=== PATIENT | female | born 2000 ===

== ENCOUNTER 2020-03-15 12:12 | Emergency (ER) | payer SELFPAY ==
[2020-03-15] MEDS ORDERED: dexAMETHasone 20 MG/5 ML VIAL ONE (12:41)
--- NOTE | 2020-03-15 12:49 | Event Note ---
ED Screening Note Date of service: 03/15/20 Time: 12:48 ED Screening Note: 19-year-old -[place] female presents to the emergency room for 4-day history of sore throat difficulty swallowing muffled voice increased secretions. Denies any fever. This initial assessment/diagnostic orders/clinical plan/treatment(s) is/are subject to change based on patients health status, clinical progression and re- assessment by fellow clinical providers in the ED. Further treatment and workup at subsequent clinical providers discretion. Patient/guardian urged not to elope from the ED as their condition may be serious if not clinically assessed and managed. Initial orders include:
[2020-03-15] MEDS ORDERED: dexAMETHasone 20 MG/5 ML VIAL IV ONE (12:55)
[2020-03-15] MEDS ORDERED: KETOROLAC 30 MG/1 ML INJ IV ONE (12:55)
[2020-03-15] MEDS ORDERED: dexAMETHasone 4 MG/ML VIAL IV ONE (12:55)
--- NOTE | 2020-03-15 12:58 | Emergency Department Report ---
ED General Adult HPI - General Chief complaint: Sore Throat Stated complaint: SORE THROAT Time Seen by Provider: 03/15/20 12:51 Source: patient Mode of arrival: Ambulatory Limitations: No Limitations - History of Present Illness Initial comments: Patient is a 19-year-old female with no past medical history who presents to the emergency department for evaluation of worsening sore throat for the past 4 days. Patient denies fever, denies cough, complains of painful swallowing but remains able to swallow food and drink. Patient denies abdominal pain, denies nausea vomiting diarrhea, denies neck pain or stiffness. - Related Data Previous Rx's Medication Instructions Recorded Last Taken Type Amoxicillin/Potassium Clav 1 each PO Q12HR #20 tablet 03/15/20 Unknown Rx [Augmentin 875-125 Tablet] dexAMETHasone [Dexamethasone] 10 mg PO ONCE 1 Days #5 tablet 03/15/20 Unknown Rx Allergies Allergy/AdvReac Type Severity Reaction Status Date / Time No Known Allergies Allergy Unverified 03/15/20 12:32 ED Review of Systems ROS: Stated complaint: SORE THROAT Other details as noted in HPI Comment: All other systems reviewed and negative ED Past Medical Hx - Past Medical History Previous Medical History?: Yes Hx Asthma: Yes - Medications Home Medications: Home Medications Medication Instructions Recorded Confirmed Last Taken Type Amoxicillin/Potassium Clav 1 each PO Q12HR #20 tablet 03/15/20 Unknown Rx [Augmentin 875-125 Tablet] dexAMETHasone [Dexamethasone] 10 mg PO ONCE 1 Days #5 tablet 03/15/20 Unknown Rx ED Physical Exam - General Limitations: No Limitations General appearance: alert, in no apparent distress - Head Head exam: Present: atraumatic, normocephalic - Eye Eye exam: Present: normal appearance - Expanded ENT Exam Expanded Mouth exam: Present: muffled voice Throat exam: Positive: tonsillar erythema, tonsillar exudate, R peritonsillar mass - Neck Neck exam: Present: tenderness, lymphadenopathy - Respiratory Respiratory exam: Present: normal lung sounds bilaterally. Absent: respiratory distress - Cardiovascular Cardiovascular Exam: Present: regular rate, normal rhythm. Absent: systolic murmur, diastolic murmur, rubs, gallop - GI/Abdominal GI/Abdominal exam: Present: soft, normal bowel sounds - Extremities Exam Extremities exam: Present: normal inspection - Back Exam Back exam: Present: normal inspection - Neurological Exam Neurological exam: Present: alert, oriented X3 - Psychiatric Psychiatric exam: Present: normal affect, normal mood - Skin Skin exam: Present: warm, dry, intact, normal color. Absent: rash ED Course Vital Signs 03/15/20 03/15/20 03/15/20 12:28 12:40 12:46 Temperature 98.4 F Pulse Rate 108 H 110 H 109 H Respiratory 20 33 H 15 Rate Blood Pressure 137/73 Blood Pressure [Left] O2 Sat by Pulse 97 98 99 Oximetry 03/15/20 03/15/20 03/15/20 13:00 13:15 13:20 Temperature Pulse Rate 99 H 96 H Respiratory 12 10 L 15 Rate Blood Pressure 131/86 126/76 Blood Pressure [Left] O2 Sat by Pulse 98 100 99 Oximetry 03/15/20 03/15/20 03/15/20 13:30 13:32 13:45 Temperature Pulse Rate 102 H 98 H 99 H Respiratory 15 15 14 Rate Blood Pressure 126/80 123/72 Blood Pressure 126/76 [Left] O2 Sat by Pulse 100 99 99 Oximetry 03/15/20 03/15/20 03/15/20 14:00 14:15 14:30 Temperature Pulse Rate 103 H 102 H 95 H Respiratory 17 14 18 Rate Blood Pressure 113/66 118/72 120/60 Blood Pressure [Left] O2 Sat by Pulse 99 99 100 Oximetry 03/15/20 03/15/20 03/15/20 14:45 15:09 15:15 Temperature Pulse Rate 94 H 117 H 106 H Respiratory 16 18 Rate Blood Pressure 113/58 120/60 120/60 Blood Pressure [Left] O2 Sat by Pulse 98 100 Oximetry 03/15/20 03/15/20 03/15/20 15:31 15:45 16:01 Temperature Pulse Rate 99 H 100 H 97 H Respiratory 14 16 12 Rate Blood Pressure 113/58 113/58 113/58 Blood Pressure [Left] O2 Sat by Pulse 100 99 100 Oximetry 03/15/20 03/15/20 16:15 16:23 Temperature Pulse Rate 99 H 104 H Respiratory 21 19 Rate Blood Pressure 114/69 Blood Pressure 123/64 [Left] O2 Sat by Pulse 99 98 Oximetry - Reevaluation(s) Reevaluation #1: 03/19/20 06:28 Discussed results at length with patient who has phelgmon vs. possible early abscess to left. Informed patient while discharge may be indicated if worsening, currently not enough clinical or radiographic evidence for intervention. Advised f/u with PMd or ER in 24-48 hours without fail or return to the ER for worsening symptoms. On discharge patient in NAD, nontoxic appearing, neck swelling/discomfort has significantly improved, patient's phonation normal. ED Medical Decision Making - Lab Data Result diagrams: 03/15/20 12:48 03/15/20 12:48 - Radiology Data Findings [facility] [address] [place] [address] Cat Scan Report Signed Patient: SAMEER FAIRBANKS MR#: [id number] : 2000 Acct:[id number] Age/Sex: 19 / F ADM Date: 03/15/20 Loc: ED Attending Dr: Ordering Physician: DELONTE LIND Date of Service: 03/15/20 Procedure(s): CT neck w con Accession Number(s): [id number] cc: DELONTE OLIVEROS CT neck w con INDICATION / CLINICAL INFORMATION: 19 years Female; MAIN. TECHNIQUE: Contiguous thin cut axial images obtained through the neck following IV contrast. Sagittal and coronal reconstructions performed by the technologist. All CT scans at this location are performed using CT dose reduction for ALARA by means of automated exposure control. COMPARISON: None available. FINDINGS: Low density area seen in the anterior palatine tonsillar region on the left, worrisome for phlegmon/developing abscess. Incomplete, vague wall enhancement noted at this time. This finding measures approximately 2 cm in maximum dimension. Parapharyngeal and retropharyngeal spaces are grossly normal. Prominent soft tissues seen in the roof the nasopharynx, as well as lingual tonsillar region-felt to be reactive. MUCOSAL SPACE: Otherwise, the nasopharynx, oropharynx and vallecula, oral cavity and floor of mouth, hypopharynx, and larynx are grossly normal. LYMPH NODES: Prominent level 2 lymph nodes seen. No suppurative node identified. SALIVARY GLANDS: Parotid, submandibular, and visualized sublingual glands are within normal limits. THYROID GLAND: Unremarkable. PARANASAL SINUSES: Right maxillary sinus is opacified and slightly expanded - mucocele is suspected. Mild mucosal thickening seen in the ethmoids. Frontal sinuses are underdeveloped. SPINE: No significant abnormality of the cervical spine appreciated. VASCULAR STRUCTURES: Vascular structures are grossly normal in appearance. ADDITIONAL FINDINGS: Surrounding soft tissues are otherwise grossly normal. IMPRESSION: 1. Phlegmon/early abscess suggested in the left palatine tonsillar region. 2. Probable mucocele in the right maxillary antrum. Signer Name: Lucas Reyes MD, III Signed: 03/15/2020 3:35 PM Workstation Name: [id number] Transcribed By: HR Dictated By: Lucas Reyes MD Electronically Authenticated By: Lucas Reyes MD Signed Date/Time: 03/15/20 7281 Critical care attestation.: If time is entered above; I have spent that time in minutes in the direct care of this critically ill patient, excluding procedure time. ED Disposition Clinical Impression: Peritonsillar abscess Disposition: DC-01 TO HOME OR SELFCARE Is pt being admited?: No Condition: Stable Instructions: Peritonsillar Abscess Additional Instructions: Follow-up with primary care doctor in 1 to 2 days for reevaluation. Return to the emergency department for any worsening symptoms. Prescriptions: Amoxicillin/Potassium Clav [Augmentin 875-125 Tablet] 1 each PO Q12HR #20 tablet dexAMETHasone [Dexamethasone] 10 mg PO ONCE 1 Days #5 tablet Referrals: PRIMARY CAREMD [Primary Care Provider] - 3-5 Days
[2020-03-15 13:46] LABS: Basophils # (Auto) 0.1 K/mm3 (0.0-0.1); Eosinophils # (Auto) 0.2 K/mm3 (0.0-0.4); Eosinophils % (Auto) 1.6 % (0.0-4.3); Hematocrit 34.2 % (30.3-42.9); Lymphocytes # (Auto) 2.4 K/mm3 (1.2-5.4); Lymphocytes % (Auto) 16.7 % (13.4-35.0); Mean Corpuscular HGB Conc 32 % (30-34); Mean Corpuscular Volume 83 fl (79-97); Monocytes # (Auto) 1.5 K/mm3 (0.0-0.8); Monocytes % (Auto) 10.2 % (0.0-7.3); Platelet Count 369 K/mm3 (140-440); Red Blood Count 4.12 M/mm3 (3.65-5.03); Red Cell Distribution Width 13.5 % (13.2-15.2)
[2020-03-15] MEDS ORDERED: AMPICILLIN/SULBACTA 3GM/100ML 3 GM/100 ML BAG IV SCH (14:00)
[2020-03-15 14:01] LABS: Alanine Aminotransferase 16 units/L (7-56); Albumin 3.8 g/dL (3.9-5); Blood Urea Nitrogen 9 mg/dL (7-17); Calcium 9.3 mg/dL (8.4-10.2); Hemolysis Index 6
[2020-03-15 14:33] LABS: BUN/Creatinine Ratio 13
--- NOTE | 2020-03-15 15:40 | Cat Scan Report ---
CT neck w con INDICATION / CLINICAL INFORMATION: 19 years Female; MAIN. TECHNIQUE: Contiguous thin cut axial images obtained through the neck following IV contrast. Sagittal and baez l reconstructions performed by the technologist. All CT scans at this location are performed using CT dose reduction for ALARA by means of automated exposure control. COMPARISON: None available. FINDINGS: Low density area seen in the anterior palatine tonsillar region on the left, worrisome for phlegmon/developing abscess. Incomplete, vague wall enhancement noted at this time. This finding alfredo ures approximately 2 cm in maximum dimension. Parapharyngeal and retropharyngeal spaces are grossly normal. Prominent soft tissues seen in the roof the nasopharynx, as well as lingual tonsillar region-felt to be reactive. MUCOSAL SPACE: Otherwise, the nasopharynx, oropharynx and vallecula, oral cavity and floor of mouth, hypopharynx, and larynx are grossly normal. LYMPH NODES: Prominent level 2 lymph nodes seen. No suppurative node identified. SALIVARY GLANDS: Parotid, submandibular, and visualized sublingual glands are within normal limits. THYROID GLAND: Unremarkable. PARANASAL SINUSES: Right maxillary sinus is opacified and slightly expanded - mucocele is suspected. Mild mucosal thickening seen in the ethmoids. Frontal sinuses are underdeveloped. SPINE: No significant abnormality of the cervical spine appreciated. VASCULAR STRUCTURES: Vascular structures are grossly normal in appearance. ADDITIONAL FINDINGS: Surrounding soft tissues are otherwise grossly normal. IMPRESSION: 1. Phlegmon/early abscess suggested in the left palatine tonsillar region. 2. Probable mucocele in the right maxillary antrum. Signer Name: Lucas Reyes MD, III Signed: 03/15/2020 3:35 PM Workstation Name: [email or web address]
[2020-03-15 16:24] VITALS: BP 123/64
== END 2020-03-15 16:23 | disposition home or self-care (01) ==
LOC: ED 12:12
DX: J02.9 Acute pharyngitis, unspecified (principal); J45.909 Unspecified asthma, uncomplicated
CPT/HCPCS: 36415; 70491; 80053; 85025; 87116; 87430; 96365; 96375; 99284; J0295; J1100; J1885; Q9967

== ENCOUNTER 2020-04-15 19:45 | Emergency (ER) | payer SELFPAY ==
[2020-04-15 20:36] VITALS: BP 123/106
[2020-04-15] MEDS ORDERED: IBUPROFEN 600 MG TAB PO ONE (22:07)
[2020-04-15] MEDS ORDERED: HYDROcodone/ACETAMINOPHEN 7.5-325MG TAB PO ONE (22:07)
[2020-04-15] MEDS ORDERED: ONDANSETRON 4 MG ODT TAB PO ONE (22:07)
--- NOTE | 2020-04-15 22:58 | XRay Report ---
RIGHT ANKLE 3 VIEWS INDICATION / CLINICAL INFORMATION: Pain - fall. COMPARISON: None available. FINDINGS: There is a nondisplaced fracture involving the posterior tibia. I suspect this does extend into the t ibiotalar joint. Alignment remains normal. Ankle mortise is maintained. Distal fibula is intact. Mode rate soft tissue swelling is noted laterally. IMPRESSION: Nondisplaced fracture involving the distal posterior tibia with probable intra-articular extension. Signer Name: Mariela Robin MD Signed: 04/15/2020 10:54 PM Workstation Name: [id number]
--- NOTE | 2020-04-15 23:22 | Emergency Department Report ---
ED Fall HPI - General Chief Complaint: Extremity Injury, Lower Stated Complaint: ANKLE INJURY/PAIN Source: patient Mode of arrival: Wheelchair - History of Present Illness Initial Comments: Patient is a nulliparous 19-year-old -[place]azi female with a history of obesity and asthma who presents to the ED with complaint of acute onset persistent painful swollen right ankle after she slipped, twisted her right ankle and fell down about 3 hours ago. Patient states that she is unable to bear weight on the right ankle because of severe pain and swelling. Patient denies head or neck injuries, nausea, vomiting, loss of consciousness, seizures, syncope, back pain, chest pain, numbness and tingling or weakness of lower extremities bilaterally, dizziness or lightheadedness. MD Complaint: fall, other (Right ankle pain and swelling) -: Sudden, hour(s) (3) Fall From: standing, other (Slipped and twisted her right ankle and fell) When Fall Occurred: 1-3 hours [employer] Fall Witnessed: yes, by family Place Fall Occurred: street Loss of Consciousness: none Prolonged Down Time?: no Symptoms Prior to Fall: none, other (Slipped, twisted her right ankle and fell) Location - Extremities: Right: Ankle (Pain, swelling) Severity: severe Severity scale (0 -10): 9 Quality: sharp, aching Context: tripped/slipped Associated Symptoms: denies. denies: headache, neck pain, numbness, weakness, chest paint, shortness of breath, abdominal pain, hematuria, unable to walk, lightheaded, vertigo, confusion, other - Related Data Previous Rx's Medication Instructions Recorded Last Taken Type Amoxicillin/Potassium Clav 1 each PO Q12HR #20 tablet 03/15/20 Unknown Rx [Augmentin 875-125 Tablet] dexAMETHasone [Dexamethasone] 10 mg PO ONCE 1 Days #5 tablet 03/15/20 Unknown Rx Cyclobenzaprine [Flexeril] 10 mg PO Q8H PRN #21 tablet 04/15/20 Unknown Rx HYDROcodone/APAP 5-325 [[place] 1 each PO Q6HR PRN #12 tablet 04/15/20 Unknown Rx 5/325] Ibuprofen [Motrin] 800 mg PO Q8HR PRN #30 tablet 04/15/20 Unknown Rx Allergies Allergy/AdvReac Type Severity Reaction Status Date / Time No Known Allergies Allergy Verified 01/11/21 20:28 ED Review of Systems ROS: Stated complaint: ANKLE INJURY/PAIN Other details as noted in HPI Constitutional: denies: chills, fever Eyes: denies: eye pain, eye discharge, vision change ENT: denies: ear pain, throat pain Respiratory: denies: cough, shortness of breath, wheezing Cardiovascular: denies: chest pain, palpitations Endocrine: no symptoms reported Gastrointestinal: denies: abdominal pain, nausea, diarrhea Genitourinary: denies: urgency, dysuria, discharge Musculoskeletal: joint swelling (Right ankle swelling and pain), arthralgia (R ight ankle pain and swelling), myalgia. denies: back pain Skin: denies: rash, lesions Neurological: denies: headache, weakness, paresthesias Psychiatric: denies: anxiety, depression Hematological/Lymphatic: denies: easy bleeding, easy bruising ED Past Medical Hx - Past Medical History Previous Medical History?: Yes Hx Asthma: Yes - Surgical History Past Surgical History?: No - Social History Smoking Status: Never Smoker Substance Use Type: None - Medications Home Medications: Home Medications Medication Instructions Recorded Confirmed Last Taken Type Amoxicillin/Potassium Clav 1 each PO Q12HR #20 tablet 03/15/20 Unknown Rx [Augmentin 875-125 Tablet] dexAMETHasone [Dexamethasone] 10 mg PO ONCE 1 Days #5 tablet 03/15/20 Unknown Rx Cyclobenzaprine [Flexeril] 10 mg PO Q8H PRN #21 tablet 04/15/20 Unknown Rx HYDROcodone/APAP 5-325 [[place] 1 each PO Q6HR PRN #12 tablet 04/15/20 Unknown Rx 5/325] Ibuprofen [Motrin] 800 mg PO Q8HR PRN #30 tablet 04/15/20 Unknown Rx ED Physical Exam - General Limitations: No Limitations General appearance: alert, in no apparent distress - Head Head exam: Present: atraumatic, normocephalic, normal inspection - Eye Eye exam: Present: normal appearance, PERRL, EOMI Pupils: Present: normal accommodation - ENT ENT exam: Present: normal exam, normal orophraynx, mucous membranes moist, TM's normal bilaterally, normal external ear exam - Neck Neck exam: Present: normal inspection, full ROM. Absent: tenderness - Respiratory Respiratory exam: Present: normal lung sounds bilaterally. Absent: respiratory distress, wheezes, rales, rhonchi, chest wall tenderness, accessory muscle use, prolonged expiratory - Cardiovascular Cardiovascular Exam: Present: regular rate, normal rhythm, normal heart sounds. Absent: systolic murmur, diastolic murmur, rubs, gallop - GI/Abdominal GI/Abdominal exam: Present: soft, normal bowel sounds. Absent: tenderness, guarding, rebound, hyperactive bowel sounds, hypoactive bowel sounds, organomegaly - Extremities Exam Extremities exam: Present: normal inspection, tenderness (Palpable right ankle tenderness and swelling with limited range of motion due to pain), normal capillary refill, joint swelling (Swollen severely tender right ankle with limited range of motion due to pain). Absent: full ROM (Right ankle limited range of motion due to pain) - Back Exam Back exam: Present: normal inspection, full ROM. Absent: tenderness, CVA tenderness (R), CVA tenderness (L), muscle spasm, paraspinal tenderness, vertebral tenderness - Neurological Exam Neurological exam: Present: alert, oriented X3, CN II-XII intact, normal gait, reflexes normal - Psychiatric Psychiatric exam: Present: normal affect, normal mood - Skin Skin exam: Present: warm, dry, intact, normal color. Absent: rash ED Course Vital Signs 04/15/20 20:27 Temperature 98.0 F Pulse Rate 100 H Respiratory 20 Rate Blood Pressure 123/106 O2 Sat by Pulse 100 Oximetry ED Medical Decision Making - Radiology Data Radiology results: report reviewed, image reviewed Findings [address] [address] XRay Report Signed Patient: SAMEER FAIRBANKS MR#: [id number] : 2000 Acct:[id number] Age/Sex: 19 / F ADM Date: 04/15/20 Loc: ED Attending Dr: Ordering Physician: DELONTE RIZVI Date of Service: 04/15/20 Procedure(s): XR ankle 3+V RT Accession Number(s): [id number] cc: DELONTE RIZVI Fluoro Time In Minutes: RIGHT ANKLE 3 VIEWS INDICATION / CLINICAL INFORMATION: Pain - fall. COMPARISON: None available. FINDINGS: There is a nondisplaced fracture involving the posterior tibia. I suspect this does extend into the tibiotalar joint. Alignment remains normal. Ankle mortise is maintained. Distal fibula is intact. Moderate soft tissue swelling is noted laterally. IMPRESSION: Nondisplaced fracture involving the distal posterior tibia with probable intra- articular extension. Signer Name: Mariela Robin MD Signed: 04/15/2020 10:54 PM Workstation Name: [id number] Transcribed By: Dictated By: Mariela Robin MD Electronically Authenticated By: Mariela Robin MD Signed Date/Time: 04/15/202253 DD/ 51 TD/TT: - Medical Decision Making This is a nulliparous 19-year-old -Swazi female with a history of obesity and asthma who presents to the ED with complaint of acute onset persistent painful swollen right ankle after she slipped, twisted her right ankle and fell down about 3 hours ago. Patient states that she is unable to bear weight on the right ankle because of severe pain and swelling. In the ED, patient is alert and oriented x3 and is not in distress. Patient was treated for pain in the ED and right ankle x-ray showed a nondisplaced fracture involving the distal posterior tibia with probable intra-articular extension. Patient case was discussed with the ED attending physician Dr. Altman who advised that the patient's right ankle be splinted and the patient be discharged home on pain medications and given a referral to the orthopedic surgeon Dr. Melgar for follow-up. Patient was therefore treated for pain and right ankle fracture was splinted with posterior long-leg splint. On reevaluation, patient is neurovascularly intact following the splint application. Patient was therefore discharged home on pain medication and given a referral to the orthopedic surgeon Dr. Melgar for follow-up. Patient is advised to contact Ramón's office first thing in the morning on April 16, 2020 to schedule a follow-up appointment. Patient was advised return to the ED immediately if symptoms get worse. - Differential Diagnosis ankle fracture; tibial fracture; foot sprain; ankle sprain Critical care attestation.: If time is entered above; I have spent that time in minutes in the direct care of this critically ill patient, excluding procedure time. ED Disposition Clinical Impression: Nondisplaced fracture of distal end of right tibia Right foot sprain Qualifiers: Encounter type: initial encounter Qualified Code(s): S93.601A - Unspecified sprain of right foot, initial encounter Disposition: TO HOME OR SELFCARE Is pt being admited?: No Does the pt Need Aspirin: No Condition: Stable Instructions: Tibial Fracture, Adult, [id number], Ankle Fracture Additional Instructions: Take medication with food, drink plenty of fluids and follow-up with orthopedic surgeon Dr. Melgar in 24 to 48 hours for reevaluation. Contact Dr. Melgar's office first thing in the morning to schedule a follow-up appointment. Return to the ED immediately if symptoms get worse. Prescriptions: Cyclobenzaprine [Flexeril] 10 mg PO Q8H PRN #21 tablet PRN Reason: Muscle Spasm Ibuprofen [Motrin] 800 mg PO Q8HR PRN #30 tablet PRN Reason: Pain , Severe (7-10) HYDROcodone/APAP 5-325 [[place] 5/325] 1 each PO Q6HR PRN #12 tablet PRN Reason: Pain Referrals: MATT MELGAR MD [Staff Physician] - 24 Hours Forms: Work/School Release Form(ED) Time of Disposition: 23:51 Print Language: [place]
== END 2020-04-16 01:42 | disposition home or self-care (01) ==
LOC: ED 19:45
DX: S82.301A Unspecified fracture of lower end of right tibia, initial encounter for closed fracture (principal); S93.601A Unspecified sprain of right foot, initial encounter; J45.909 Unspecified asthma, uncomplicated; E66.9 Obesity, unspecified; Z79.899 Other long term (current) drug therapy; X58.XXXA Exposure to other specified factors, initial encounter; Y93.89 Activity, other specified; Y92.410 Unspecified street and highway as the place of occurrence of the external cause; Y99.8 Other external cause status